=== PATIENT | female | born 1940 | race Caucasian/White ===

== ENCOUNTER 2017-04-06 17:13 | Emergency (ER) | payer OTHER, MEDICARE ==
[~2017-04-06] VITALS: Ht 165.1 cm; Wt 81.6 kg
[~2017-04-06 17:13] MED LIST: ABILIFY; ABILIFY5 MG PO; ALPRAZOLAM0.5 MG PO; AMBIEN10 MG PO; AMLODIPINE BESYL5 MG PO; AMOX TR-K CLV1 EAC4 PO; AMOXICILLIN500 MG PO; ASPIRIN EC325 MG PO; Ambien PO; BYSTOLIC5 MG PO; CELEBREX200 MG PO; CELECOXIB200 MG PO; CHLORDIAZEPOXID10 MG PO; CYMBALTA30 MG PO; CYMBALTA60 MG PO; DESYREL100 MG PO; DIAZEPAM5 MG PO; DOK PLUS TABLE1 EACH PO; Desyrel PO; EFFEXOR; EFFEXOR XR150 MG PO; ENDOCET 5-3251 EACH PO; Ecotrin PO; Effexor XR PO; FERROUS SULFAT325 MG PO; FLONASE16 G1 BOTH NARES; HUMALOG INSULIN SC; HUMALOG100 UNIT/1 SC; HUMALOG100 UNIT/2 SC; HUMALOG100 UNITS/ SQ; HYDROCHLOROTHIA25 MG PO; Hydrodiuril,Oretic,E PO; IMITREX50 MG PO; LAMICTAL150 M1 PO; LANTUS 10100 UNITS/ SC; LANTUS 3 M100 UNITS/ SC; LANTUS 3 M100 UNITS1 SC; LANTUS100 UNIT/1 SQ; LEVOXYL125 MCG PO; LIBRIUM10 MG PO; LIBRIUM5 MG PO; LISINOPRIL40 MG PO; LaMICtal PO; Levothroid,Synthroid PO; Levsin PO; METANX CAPSULE1 EACH PO; NAPROXEN500 MG PO; PANTOPRAZOLE SO40 MG PO; PERCOCET 5/31 TABLET PO; PROTONIX40 MG PO; Prevacid PO; QUETIAPINE FUM100 MG PO; SENOKOT S,PE1 TABLET PO; SEROQUEL100 MG PO; SEROQUEL200 MG PO; SYNTHROID; SYNTHROID125 MCG PO; Sodium Bicarbonate PO; TOVIAZ8 MG PO; TRAMADOL HCL50 MG PO; TYLENOL REGULA325 MG PO; VALIUM2 MG PO; VESICARE10 MG PO; VITAMIN B12-FO1 EACH PO; VITAMIN B122500 MCG PO; VITAMIN C1000 M1 PO; VITAMIN C1000 MG PO; VITAMIN D31000 UNI2 PO; VITAMIN D35000 UNIT PO; VITAMIN D5000 INTUN PO; VOLTAREN75 MG PO; Valium PO; XANAX1 MG PO; XYZAL5 MG PO; ZOLOFT100 MG PO; ZOMIG2.5 MG PO
[2017-04-06 18:44] LABS: HEMATOCRIT 35.4 % (36.0-46.0); MCH 30.7 PG (29.0-34.0); MCHC 33.3 G/DL (30.0-36.0); MCV 92.2 FL (83-99); MEAN PLAT.VOLUME 10.1 uM^3 (9.5-12.4); PLATELET COUNT 206 K/uL (156-360); RBC DIS.WIDTH-CV 12.9 % (11.8-14.6); RBC DIS.WIDTH-SD 43.5 % (39-53); RED BLOOD COUNT 3.84 M/uL (3.80-5.20); WHITE BLOOD COUNT 8.4 K/uL (4.1-10.2)
[2017-04-06 18:58] LABS: CHLORIDE 101 mEq/L (99-109); POTASSIUM 4.1 mEq/L (3.7-5.4); SODIUM 140 mEq/L (136-147)
[2017-04-06 19:01] LABS: ANION GAP 9 MEQ/L (2-14); GLUCOSE 97 mg/dL (70-99)
[2017-04-06 19:03] LABS: GFR ESTIMATE (CALCULATED) 33 mL/min/
[2017-04-06 19:04] LABS: UREA NITROGEN (BUN) 38 mg/dL (9-23)
[2017-04-06 19:07] LABS: TROP-I INTERPRETATION NEGATIVE; TROPONIN-I < 0.01 ng/mL (0.0-0.30)
[2017-04-06 20:02] VITALS: BP 143/60
== END 2017-04-06 20:03 | disposition home or self-care (01) ==
LOC: EME 17:13
PROVIDERS: Emergency Medicine
DX: R55 Syncope and collapse (principal); T42.4X5A Adverse effect of benzodiazepines, initial encounter; K21.9 Gastro-esophageal reflux disease without esophagitis; E11.9 Type 2 diabetes mellitus without complications; E78.5 Hyperlipidemia, unspecified; F32.9 Major depressive disorder, single episode, unspecified; I10 Essential (primary) hypertension; Z88.5 Allergy status to narcotic agent; Z88.8 Allergy status to other drugs, medicaments and biological substances; Z79.4 Long term (current) use of insulin; Z87.891 Personal history of nicotine dependence
CPT/HCPCS: 71020; 80048; 83605; 83880; 84484; 85027; 87040; 93005; 99281; 99284; J2405

== ENCOUNTER 2018-05-14 23:06 | Emergency (ER) | payer OTHER, MEDICARE ==
[~2018-05-14] VITALS: Ht 162.6 cm; Wt 80.0 kg
[2018-05-14 23:40] LABS: BASOPHIL (%) 0.3 % (0-1); EOSINOPHIL (%) 1.2 % (0-5); EOSINOPHIL COUNT 0.1 K/uL (0-0.3); HEMATOCRIT 30.4 % (36.0-46.0); HEMOGLOBIN 10.2 G/DL (11.9-15.5); IMMATURE GRANULOCYTE (%) 0.5 % (0.0-0.7); LYMPHOCYTE (%) 16.3 % (15-42); LYMPHOCYTE COUNT 1.6 K/uL (1.0-2.8); MCH 30.1 PG (29.0-34.0); MCHC 33.6 G/DL (30.0-36.0); MCV 89.7 FL (83-99); MONOCYTE COUNT 0.8 K/uL (0-0.8); NEUTROPHIL (%) 73.7 % (45-76); NEUTROPHIL COUNT 7.3 K/uL (1.8-6.4); PLATELET COUNT 163 K/uL (156-360); RBC DIS.WIDTH-CV 12.6 % (11.8-14.6); RBC DIS.WIDTH-SD 41.2 % (39-53); RED BLOOD COUNT 3.39 M/uL (3.80-5.20)
[2018-05-14 23:48] LABS: PTT 21.9 SEC (25-37)
[2018-05-14 23:48] LABS: APPEARANCE SL.HAZY ((CLEAR)); BILIRUBIN NEGATIVE; BLOOD NEGATIVE; COLOR YELLOW ((YELLOW)); GLUCOSE (STRIP) NEGATIVE; KETONES NEGATIVE; LEUKOCYTES NEGATIVE; NITRITE NEGATIVE; PROTEIN (STRIP) NEGATIVE; SPECIFIC GRAVITY 1.012 (1.000-1.030); UROBILINOGEN 0.2 MG/DL (0.2-1.0)
[2018-05-14 23:51] LABS: ALBUMIN 3.5 g/dL (3.2-4.8); CHLORIDE 103 mEq/L (99-109); POTASSIUM 3.8 mEq/L (3.7-5.4); SODIUM 137 mEq/L (136-147)
[2018-05-14 23:53] LABS: GLUCOSE 110 mg/dL (70-99); TOTAL PROTEIN 6.5 g/dL (6.4-8.3)
[2018-05-14 23:55] LABS: TOTAL BILIRUBIN 0.3 mg/dL (0.0-1.0)
[2018-05-14 23:57] LABS: ALKALINE PHOSPHATASE 76 IU/L (3-129); CREATININE 1.3 mg/dL (0.6-1.3); GFR ESTIMATE (CALCULATED) 42 mL/min/
[2018-05-14 23:58] LABS: AST (GOT) 21 IU/L (2-34); UREA NITROGEN (BUN) 34 mg/dL (9-23)
[2018-05-14 23:59] LABS: DIRECT BILIRUBIN 0.1 mg/dL (0.0-0.3)
[2018-05-15] LABS: TROP-I INTERPRETATION NEGATIVE; TROPONIN-I 0.02 ng/mL (0.0-0.30)
[2018-05-15] LABS: ALT (GPT) 17 IU/L (3-49)
[2018-05-15 00:01] LABS: BACTERIA NONE SEEN /HPF; EPITHELIAL CELLS RARE /HPF; HYALINE CASTS 0-5 /LPF; MUCUS TRACE /LPF; RED BLOOD CELLS NONE SEEN /HPF (0-5); UCUL ADDED? NO; WHITE BLOOD CELLS 0-5 /HPF (0-5)
[2018-05-15 00:02] LABS: LIPASE 1 U/L (1.0-51.0)
[2018-05-15] MEDS ORDERED: LEVAQUIN500 MG PO (02:01)
[2018-05-15 02:41] VITALS: BP 95/47
== END 2018-05-15 02:45 | disposition home or self-care (01) ==
LOC: EME → EDBD 23:06 → EME 23:06
PROVIDERS: Emergency Medicine
DX: M25.512 Pain in left shoulder (principal); M25.511 Pain in right shoulder; R50.9 Fever, unspecified; F32.9 Major depressive disorder, single episode, unspecified; E78.5 Hyperlipidemia, unspecified; I10 Essential (primary) hypertension; K21.9 Gastro-esophageal reflux disease without esophagitis; Z88.5 Allergy status to narcotic agent; Z88.8 Allergy status to other drugs, medicaments and biological substances; Z87.891 Personal history of nicotine dependence; F41.9 Anxiety disorder, unspecified; Z96.612 Presence of left artificial shoulder joint; Z96.652 Presence of left artificial knee joint
CPT/HCPCS: 71046; 71250; 73030; 80048; 80076; 81003; 83605; 83690; 83880; 84484; 85025; 85610; 85730; 87040; 93005; 99281; 99284; J7040

== ENCOUNTER → 2018-05-21 | Outpatient (CLI) | payer OTHER, MEDICARE ==
[~2018-05-21] MED LIST changes: +LEVAQUIN500 MG PO
== END | disposition home or self-care (01) ==
LOC: NUC 09:31
DX: M19.072 Primary osteoarthritis, left ankle and foot (principal); M19.071 Primary osteoarthritis, right ankle and foot; R93.7 Abnormal findings on diagnostic imaging of other parts of musculoskeletal system; M25.561 Pain in right knee; Z96.612 Presence of left artificial shoulder joint; Z98.890 Other specified postprocedural states; Z87.81 Personal history of (healed) traumatic fracture; Z89.021 Acquired absence of right finger(s)
CPT/HCPCS: 78315; A9503